=== PATIENT | female | born 1955 | race Caucasian/White ===

== ENCOUNTER 2024-03-24 16:51 | Emergency (ER) | payer OTHER ==
[~2024-03-24] VITALS: Ht 152.4 cm; Wt 80.0 kg
[~2024-03-24 16:51] MED LIST: APIX5TAB MT; ATOR40TA70 MT; CARSR90 MT; PRAV40TA58 PO
[2024-03-24 16:53] VITALS: O2SAT 98
[2024-03-24] MEDS ORDERED: ACETAMINOPHEN 325MG TABLET PO ONE (19:30)
[2024-03-24] MEDS ORDERED: KETOROLAC 30MG/ML VIAL IM ONE (19:30)
[2024-03-24] MEDS: KETOROLAC 30MG/ML VIAL IM NR (21:40)
[2024-03-24] MEDS: ACETAMINOPHEN 325MG TABLET PO NR (21:41)
[2024-03-24] MEDS ORDERED: TOPUD MT (22:32)
[2024-03-24] MEDS ORDERED: LIDO700A15 TP (22:32)
[2024-03-24 22:38] VITALS: BP 164/90; PULSE 73; RESP 18; TEMP 98.6
== END 2024-03-24 22:43 | disposition home or self-care (01) ==
LOC: ER 16:51
DX: S20.212A Contusion of left front wall of thorax, initial encounter (principal); W18.39XA Other fall on same level, initial encounter; Y93.89 Activity, other specified; Y92.89 Other specified places as the place of occurrence of the external cause; Y99.8 Other external cause status
CPT/HCPCS: 99284; 73502; 71101; 73060; 73080; 73090; 73130; 96372; J1885